=== PATIENT | female | born 1940 | race Caucasian/White ===

== ENCOUNTER → 2017-12-09 | Outpatient (CLI) | payer MEDICARE, BC ==
[~2017-12-09] MED LIST: ASPI-1471 PO; B CO1CAP PO; BLOO-1492 MC; BLOO-1503 MC; BLOO-1775 MC; BLOO-960 MC; BLOO1STR16 MC; GARL10005 PO; GARL1CAP15 PO; GLIM2TAB42 PO; GLIM2TAB43 PO; GLIM4TAB50 PO; GLUC100026 PO; GLUC500T13 PO; INSU100I30 SQ; LEV75 PO; LEVO150T7 PO; LEVO175T42 PO; LOSA100T67 PO; LOSA50TA67 PO; LUTE20TA PO; METH4TAB66 PO; METXR500 PO; MULT-820 PO; MULT-865 PO; NAPR-1043 PO; NEED-653 SQ; NYST15CR32 TP; PER PO; PNEU0.5D3 IM; SIM10 PO; SIMV-49 PO; WAR75 PO; WARF5TAB23 PO; [UNRECOGNIZED DRUG - CODE] PO
== END ==
LOC: LAB 09:08
PROVIDERS: ATTEND Nurse Practitioner Family
DX: E11.65 Type 2 diabetes mellitus with hyperglycemia (principal); E03.9 Hypothyroidism, unspecified; E78.00 Pure hypercholesterolemia, unspecified; I10 Essential (primary) hypertension
CPT/HCPCS: 36415; 82040; 82247; 82310; 82374; 82435; 82465; 82565; 82947; 83036; 83718; 84075; 84132; 84155; 84295; 84443; 84450; 84460; 84478; 84520

== ENCOUNTER 2018-05-17 07:22 | Observation (INO) | payer MEDICARE, BC ==
[~2018-05-17] VITALS: Ht 177.8 cm; Wt 135.2 kg
[~2018-05-17 07:22] MED LIST changes: -CYCL10TA29 PO; -FURO20TA19 PO; -OXYC5TAB38 PO
--- NOTE | 2018-05-17 07:29 | ER Report ---
History and Physical Time Seen By MD: 07:27 HPI/ROS CHIEF COMPLAINT: Left hip pain HISTORY OF PRESENT ILLNESS: Patient is a 78 her old female who presents to the emergency by ambulance with complaint of atraumatic left anterior hip pain. Patient states the pain is severe made worse with movement and she is having difficulty ambulating or even switching positions. Patient reports having a left hip replacement in [address] Everardo Patel. She states that she's had approximate 4 episodes in the past with similar type presentation with "muscle spasms" with difficulty ambulation. She reports that she is usually able to get over these episodes by taking extra strength Tylenol. She did follow up with Dr. Patel this past April secondary to these episodes. He stated that the hip was "okay" she was offered either a trial oral pain medications or physical therapy. She chose physical therapy and did 4 episodes of water therapy and improved her ambulation status and was feeling "good". She does have a plan to start a nutritional program to lose some weight this summer. Patient denies any rash over the area. She does report a subjective fever this past Thursday and felt flushed but did not actually take her temperature. Position of comfort is a sitting on the edge of a chair position with the hip flexed. She has minimal discomfort with either internal or external rotation. She has extreme pain with extension at the knee. She has pain with hip extension. REVIEW OF SYSTEMS: Constitutional: No fever, no chills. Eyes: No discharge. ENT: No sore throat. Cardiovascular: No chest pain, no palpitations. Respiratory: No cough, no shortness of breath. Gastrointestinal: No abdominal pain, no vomiting. Genitourinary: No hematuria. Musculoskeletal: Left hip pain Skin: No rashes. Neurological: No headache. Allergies: Coded Allergies: Penicillins (Verified Allergy, Intermediate, ITCHING, 05/17/18) Sulfa (Sulfonamide Antibiotics) (Unverified Allergy, Unknown, 05/17/18) Home Meds Active Scripts Diltiazem Hcl (DILTIAZEM 24HR ER) 120 Mg Cap.er.24h, 1 CAP PO QDAY for 90 Days, #90 CAP 1 Refill Prov:LEILANI MEJIA APRN CERTIFIED TEACHER ASSISTANT-C 04/27/18 Warfarin Sodium (WARFARIN SODIUM) 5 Mg Tablet, 2 TAB PO QDAY, #180 TAB 1 Refill Prov:JACKIELEILANIVICTORINA FRIEND CERTIFIED TEACHER ASSISTANT-C 03/29/18 Simvastatin (SIMVASTATIN) 20 Mg Tablet, 1 TAB PO HS, #90 TAB 1 Refill Prov:JACKIELEILANI BERNALP-C 03/29/18 Levothyroxine Sodium (LEVOTHYROXINE SODIUM) 175 Mcg Tablet, 1 TAB PO QDAY, #90 TAB 0 Refills Prov:LEILANI MEJIA APRN-C 03/22/18 Blood-Glucose Meter (BLOOD GLUCOSE METER) 1 Each Each, 1 EACH MC BID, #1 Prov:LEILANI MEJIA APRNP-C 10/20/17 Losartan Potassium (LOSARTAN POTASSIUM) 100 Mg Tablet, 1 TAB PO QDAY, #90 TAB 2 Refills Prov:LEILANI MEJIA APRNP-C 09/08/17 [place], Insulin Disposable (Bd Ultra-Fine Pen Needle) 1 Each Dis.needle, BOX SQ QDAY, #1 11 Refills Prov:LEILANI MEJIA APRNP-C 09/02/17 Insulin Glargine 100 Un/Ml Pen (LANTUS SOLOSTAR PEN) 100 Unit/1 Ml Insuln.pen, 28 UNIT SQ QDAY, #1 BOX 5 Refills Prov:LEILANI MEJIA APRN-C 08/03/17 Glimepiride (GLIMEPIRIDE) 4 Mg Tablet, 2 TAB PO QDAY, #180 TAB 3 Refills Prov:FRANKIE BELLE PHARMD 07/13/17 NYSTATIN 360371 UNT/ML Topical Cream (NYSTATIN 689991 UNT/ML Topical Cream) 15 Gm Cream..g., 1 MARIE TP TID Y for RASH, #1 TUBE 11 Refills Prov:LEILANI MEJIA APRNP-C 06/22/17 Blood Sugar Diagnostic (FREESTYLE LITE TEST STRIPS) 1 Each Strip, 1 EACH MC BID , #100 STRIP 5 Refills Prov:LEILANI MEJIA APRN CERTIFIED TEACHER ASSISTANT-C 06/22/17 Reported Medications Garlic (GARLIC) 1,000 Mg Capsule, 2 CAP PO DAILY, CAPSULE 06/22/17 Blood Sugar Diagnostic (ACCU-CHEK ERASTO PLUS) 1 Each Strip, 1 EACH MC QID, #100 STRIP 12 Refills 11/06/14 Glucosamine Sulfate 2KCL (GLUCOSAMINE) 1,000 Mg Tablet, 1 TAB PO DAILY 08/08/14 Lutein (LUTEIN) 20 Mg Tablet, 1 TAB PO DAILY 08/08/14 Multivitamin (DAILY MULTIPLE VITAMIN) 1 Each Tablet, 1 TAB PO DAILY 06/14/14 Past Medical/Surgical History Past medical history for hypercholesterolemia, hypothyroidism, insulin- dependent diabetes, left hip replacement in 2006, History of atrial fibrillation and hypertension. History of peripheral edema. Primary care provider is Leilani Domínguez. Smoking Status: Never Smoker Constitutional Vital Sign - Last 24 Hours 05/17/18 05/17/18 05/17/18 05/17/18 07:26 07:28 07:52 10:45 Temp 97.7 Pulse 96 106 Resp 20 B/P (MAP) 157/90 157/90 (112) Pulse Ox 94 93 O2 Delivery Room Air O2 Flow Rate 2.0 Physical Exam General Appearance: The patient is alert, has no immediate need for airway protection and no signs of toxicity. Respiratory: There are no retractions, lungs are clear to auscultation. Cardiovascular: Patient is slightly tachycardic with an irregularly irregular rhythm no audible murmurs noted. Gastrointestinal: Abdomen is soft and non tender, no masses, bowel sounds normal. Neurological: Awake and alert Skin: Warm and dry, no rashes. Musculoskeletal: Neck is supple non tender. Examination of the left hip reveals patient has inability to ambulate or support weight secondary to pain. She has normal internal and external rotation of the hip without significant pain. Extension at the knee causes pain in the anterior hip area patient has pain in a reclined position in the anterior hip. Medical Decision Making Data Points Result Diagram: 05/17/18 0845 05/17/18 0845 Laboratory Hematology Test 05/17/18 08:45 Red Blood Count 5.29 M/uL (4.17-5.56) Mean Corpuscular Volume 84.6 fL (80.0-96.0) Mean Corpuscular Hemoglobin 28.1 pg (26.0-33.0) Mean Corpuscular Hemoglobin Concent 33.2 g/dL (32.0-36.0) Red Cell Distribution Width 15.3 % (11.5-14.5) Mean Platelet Volume 8.6 fL (7.2-11.1) Neutrophils (%) (Auto) 76.1 % (39.4-72.5) Lymphocytes (%) (Auto) 13.1 % (17.6-49.6) Monocytes (%) (Auto) 8.4 % (4.1-12.4) Eosinophils (%) (Auto) 1.8 % (0.4-6.7) Basophils (%) (Auto) 0.6 % (0.3-1.4) Nucleated RBC Relative Count (auto) 0.0 /100WBC Neutrophils # (Auto) 9.7 K/uL (2.0-7.4) Lymphocytes # (Auto) 1.7 K/uL (1.3-3.6) Monocytes # (Auto) 1.1 K/uL (0.3-1.0) Eosinophils # (Auto) 0.2 K/uL (0.0-0.5) Basophils # (Auto) 0.1 K/uL (0.0-0.1) Nucleated RBC Absolute Count (auto) 0.00 K/uL Erythrocyte Sedimentation Rate 46 mm/HOUR (0-30) Prothrombin Time 28.2 seconds (12.0-14.4) Prothromb Time International Ratio 2.58 Sodium Level 134 mmol/L (137-145) Potassium Level 4.6 mmol/L (3.5-5.0) Chloride Level 98 mmol/L (98-107) Carbon Dioxide Level 25 mmol/L (22-31) Blood Urea Nitrogen 24 mg/dl (7-18) Creatinine 1.20 mg/dl (0.52-1.04) Glomerular Filtration Rate Calc 43.7 Random Glucose 185 mg/dl (75-110) Calcium Level 9.6 mg/dl (8.4-10.2) C-Reactive Protein 7.9 mg/dl (<1.0) Chemistry Test 05/17/18 08:45 White Blood Count 12.8 k/uL (4.5-11.0) Red Blood Count 5.29 M/uL (4.17-5.56) Hemoglobin 14.9 g/dL (12.0-16.0) Hematocrit 44.7 % (34.0-47.0) Mean Corpuscular Volume 84.6 fL (80.0-96.0) Mean Corpuscular Hemoglobin 28.1 pg (26.0-33.0) Mean Corpuscular Hemoglobin Concent 33.2 g/dL (32.0-36.0) Red Cell Distribution Width 15.3 % (11.5-14.5) Platelet Count 217 K/uL (150-450) Mean Platelet Volume 8.6 fL (7.2-11.1) Neutrophils (%) (Auto) 76.1 % (39.4-72.5) Lymphocytes (%) (Auto) 13.1 % (17.6-49.6) Monocytes (%) (Auto) 8.4 % (4.1-12.4) Eosinophils (%) (Auto) 1.8 % (0.4-6.7) Basophils (%) (Auto) 0.6 % (0.3-1.4) Nucleated RBC Relative Count (auto) 0.0 /100WBC Neutrophils # (Auto) 9.7 K/uL (2.0-7.4) Lymphocytes # (Auto) 1.7 K/uL (1.3-3.6) Monocytes # (Auto) 1.1 K/uL (0.3-1.0) Eosinophils # (Auto) 0.2 K/uL (0.0-0.5) Basophils # (Auto) 0.1 K/uL (0.0-0.1) Nucleated RBC Absolute Count (auto) 0.00 K/uL Erythrocyte Sedimentation Rate 46 mm/HOUR (0-30) Prothrombin Time 28.2 seconds (12.0-14.4) Prothromb Time International Ratio 2.58 Glomerular Filtration Rate Calc 43.7 Calcium Level 9.6 mg/dl (8.4-10.2) C-Reactive Protein 7.9 mg/dl (<1.0) Coagulation Test 05/17/18 08:45 Prothrombin Time 28.2 seconds Prothromb Time International Ratio 2.58 EKG/Imaging EKG Interpretation 05/17/2018 8:59:30 am EKG shows atrial fibrillation with rapid ventricular response with a ventricular rate of 103 bpm. There no prior EKGs to compare with. Imaging FACILITY: [facility] PATIENT NAME: Josie Hampton : 1940 MR: [id number] V: [id number] EXAM DATE: ORDERING PHYSICIAN: GRICELDA CHAPMAN TECHNOLOGIST: Location: [facility] - [place] Patient: Josie Hampton : 1940 Visit/Account:[id number] Date of Sevice: 05/17/2018 Exam type: HIP LEFT History: Fall, muscle spasms Comparison: April 13, 2007. Findings: There is a left hip arthroplasty appears in good anatomic alignment. There is a lucency surrounding the distal aspect of the femoral shaft component which could indicate loosening although clinical correlation needed. The inferior pubic ramus appears slightly irregular although this could be related to patient rotation. Mild to moderate degenerative change of the right hip joint incidentally noted IMPRESSION: 1. Left hip arthroplasty is noted which appears to be in good anatomic alignment. Lucency surrounding the distal aspect of the left femoral shaft component could indicate loosening although clinical correlation needed. The inferior pubic ramus on the left appears irregular although this could be related to patient rotation if pathology in this location is suspected additional views of the pelvis recommended Report Dictated By: Beulah Cooper MD at 05/17/2018 9:35 AM Report E-Signed By: Beulah Cooper MD at 05/17/2018 9:38 AM WSN:[email or web address] FACILITY: [facility] PATIENT NAME: Josie Hampton : 1940 MR: [id number] V: [id number] EXAM DATE: ORDERING PHYSICIAN: GRICELDA CHAPMAN TECHNOLOGIST: Location: [facility] - [place] Patient: Josie Hampton : 1940 Visit/Account:[id number] Date of Sevice: 05/17/2018 Exam type: PELVIS MIN 3 VIEWS History: abnl appearance left ramus on femur xr Comparison: Left hip image earlier in the day. Findings: Multiple views of the pelvis again demonstrate a left hip arthroplasty without evidence of acute fracture or dislocation.. There is no evidence of acute appearing fracture involving the pubic rami. IMPRESSION: 1. No evidence of acute appearing fracture involving the pubic rami Report Dictated By: Beulah Cooper MD at 05/17/2018 11:18 AM Report E-Signed By: Beulah Cooper MD at 05/17/2018 11:21 AM WSN:[email or web address] ED Course/Re-evaluation ED Course 05/17/2018 7:59:00 am After history and physical exam was performed differential diagnosis was formulated which includes but is not limited to osteoarthritis, occult fracture, acute synovitis doubt septic arthritis. Plan at this time will be to give 1 hydrocodone tablet we will x-ray the left hip. 05/17/2018 9:57:26 am x-ray of the left hip appears essentially normal however there is some irregularity to the left pubic rami. We will obtain a pelvis x- ray to better identify this area to delineate fracture between rotational component. Further patient with elevated white count at 12.8 also with elevated CRP and ESR. While this just may represent an inflammatory process must consider possible septic source as patient is an insulin requiring diabetic as well as having a prosthetic hip. 05/17/2018 11:29:38 am pelvic x-ray negative for fracture. Patient unable to ambulate secondary to pain. Patient lives by herself. She states that she has been just sitting in a chair in diapers and having people bring her food. Plan at this time I will be discussing admission with the hospitalist for orthopedic evaluation as well as physical therapy evaluation. 05/17/2018 11:39:29 am I spoke with Dr. Briceno regarding the case he is agreed to accept the patient at this time we'll consider possible orthopedic consultation plan will be physical therapy evaluation and pain control. Decision to Disposition Date: May 17, 2018 Decision to Disposition Time: 11:41 Depart Departure Latest Vital Signs Vital Signs Date Time Temp Pulse Resp B/P (MAP) Pulse Ox O2 Delivery O2 Flow Rate FiO2 05/17/18 10:45 2.0 05/17/18 07:52 106 93 05/17/18 07:28 157/90 (112) 05/17/18 07:26 97.7 20 Room Air Impression: Primary Impression: Hip pain, acute Condition: Condition Unchanged Disposition: Admitted from ER (to Neli Briceno) Referrals: LEILANI MEJIA APRN CERTIFIED TEACHER ASSISTANT-C (PCP) Problem Qualifiers Primary Impression: Hip pain, acute Laterality: left Qualified Codes: M25.552 - Pain in left hip GRICELDA CHAPMAN MD May 17, 2018 07:29
[2018-05-17] MEDS ORDERED: APAP/HYDROCODONE 325/5 TAB PO ONE (08:10)
--- NOTE | 2018-05-17 08:19 | EKG ---
FACILITY: [facility] PATIENT NAME: LUDA MORRIS : [id number] MR: [id number] V: [id number] EXAM DATE: ORDERING PHYSICIAN: GRICELDA CHAPMAN TECHNOLOGIST: AYLEEN Bernal Reason : AFIB Blood Pressure : / mmHG Vent. Rate : 103 BPM Atrial Rate : 101 BPM P-R Int : 000 ms QRS Dur : 076 ms QT Int : 326 ms P-R-T Axes : 000 053 090 degrees QTc Int : 427 ms Atrial fibrillation with rapid ventricular response Nonspecific ST abnormality , probably digitalis effect Abnormal ECG No previous ECGs available Confirmed by CLEVE BRAXTON ([id number]) on 05/17/2018 9:55:50 AM Referred By: ADELA Confirmed By:CLEVE BRAXTON
[2018-05-17 08:50] LABS: PLATELET COUNT, AUTOMATED 217 K/uL (150-450)
[2018-05-17 08:58] LABS: INR 2.58
--- NOTE | 2018-05-17 09:42 | RADIOLOGY IMAGING REPORT ---
FACILITY: [facility] PATIENT NAME: Josie Hampton : 1940 MR: [id number] V: [id number] EXAM DATE: ORDERING PHYSICIAN: GRICELDA CHAPMAN TECHNOLOGIST: Location: [facility] - [place] Patient: Josie Hampton : 1940 Visit/Account:[id number] Date of Sevice: 05/17/2018 Exam type: HIP LEFT History: Fall, muscle spasms Comparison: April 13, 2007. Findings: There is a left hip arthroplasty appears in good anatomic alignment. There is a lucency surrounding the distal aspect of the femoral shaft component which could indicate loosening although clinical cor relation needed. The inferior pubic ramus appears slightly irregular although this could be related to patient rotation. Mild to moderate degenerative change of the right hip joint incidentally noted IMPRESSION: 1. Left hip arthroplasty is noted which appears to be in good anatomic alignment. Lucency surroundi ng the distal aspect of the left femoral shaft component could indicate loosening although clinical c orrelation needed. The inferior pubic ramus on the left appears irregular although this could be related to patient rota tion if pathology in this location is suspected additional views of the pelvis recommended Report Dictated By: Beulah Cooper MD at 05/17/2018 9:35 AM Report E-Signed By: Beulah Cooper MD at 05/17/2018 9:38 AM WSN:[email or web address]
--- NOTE | 2018-05-17 11:24 | RADIOLOGY IMAGING REPORT ---
FACILITY: [facility] PATIENT NAME: Josie Hampton : 1940 MR: [id number] V: [id number] EXAM DATE: ORDERING PHYSICIAN: GRICELDA CHAPMAN TECHNOLOGIST: Location: [facility] - [place] Patient: Josie Hampton : 1940 Visit/Account:[id number] Date of Sevice: 05/17/2018 Exam type: PELVIS MIN 3 VIEWS History: abnl appearance left ramus on femur xr Comparison: Left hip image earlier in the day. Findings: Multiple views of the pelvis again demonstrate a left hip arthroplasty without evidence of acute frac ture or dislocation.. There is no evidence of acute appearing fracture involving the pubic rami. IMPRESSION: 1. No evidence of acute appearing fracture involving the pubic rami Report Dictated By: Beulah Cooper MD at 05/17/2018 11:18 AM Report E-Signed By: Beulah Cooper MD at 05/17/2018 11:21 AM WSN:[email or web address]
[2018-05-17 12:37] VITALS: BP 132/63
[2018-05-17] MEDS ORDERED: WARF5TAB23 PO (13:18)
[2018-05-17] MEDS ORDERED: INSULIN HUM LISPRO 100 UN/ML 3 ML VIAL SUBQ PRN (13:35)
[2018-05-17] MEDS ORDERED: ACETAMINOPHEN 325 MG TAB PO PRN (13:35)
[2018-05-17] MEDS ORDERED: [UNRECOGNIZED DRUG - OTHER] TP PRN (13:35)
--- NOTE | 2018-05-17 13:54 | History & Physical ---
History of Present Illness Chief Complaint left hip pain History of Present Illness Patient is a 78 her old female who presented to the emergency department with complaints of left anterior hip pain. Patient states the pain is severe made worse with movement and she is having difficulty ambulating or even switching positions. Patient reports having a left hip replacement in [address] Everardo Patel. She states that she's had approximate 4 episodes in the past with similar type presentation with "muscle spasms" with difficulty ambulation. She reports that she is usually able to get over these episodes by taking extra strength Tylenol. She did follow up with Dr. Patel this past April secondary to these episodes. He stated that the hip was "okay" she was offered either a trial oral pain medications or physical therapy. She chose physical therapy and did 4 episodes of water therapy and improved her ambulation status and was feeling "good". She does have a plan to start a nutritional program to lose some weight this summer. Patient denies any rash over the area. Position of comfort is a sitting on the edge of a chair position with the hip flexed. She has minimal discomfort with either internal or external rotation. She has extreme pain with extension at the knee. She has pain with hip extension. She was recommended for admission since she lives at home alone and has difficulty ambulating. History Problems: (1) Essential hypertension Status: Chronic (2) Hypercholesterolemia Status: Chronic (3) Hypothyroidism Status: Chronic (4) Obesity Status: Chronic (5) Type II diabetes mellitus, uncontrolled Status: Chronic (6) Obstructive sleep apnea Status: Chronic (7) long-term (current) use of anticoagulants Status: Chronic (8) Atrial fibrillation Status: Chronic Home Meds Active Scripts Diltiazem Hcl (DILTIAZEM 24HR ER) 120 Mg Cap.er.24h, 1 CAP PO QDAY for 90 Days, #90 CAP 1 Refill Prov:LEILANI MEJIA APRN PIG MACHINE CRANE OPERATOR-C 04/27/18 Warfarin Sodium (WARFARIN SODIUM) 5 Mg Tablet, 2 TAB PO QDAY, #180 TAB 1 Refill Prov:LEILANI MEJIA APRN PIG MACHINE CRANE OPERATOR-C 03/29/18 Simvastatin (SIMVASTATIN) 20 Mg Tablet, 1 TAB PO HS, #90 TAB 1 Refill Prov:LEILANI MEJIA APRN PIG MACHINE CRANE OPERATOR-C 03/29/18 Levothyroxine Sodium (LEVOTHYROXINE SODIUM) 175 Mcg Tablet, 1 TAB PO QDAY, #90 TAB 0 Refills Prov:LEILANI MEJIA APRN-C 03/22/18 Blood-Glucose Meter (BLOOD GLUCOSE METER) 1 Each Each, 1 EACH MC BID, #1 Prov:LEILANI MEJIA APRN-C 10/20/17 Losartan Potassium (LOSARTAN POTASSIUM) 100 Mg Tablet, 1 TAB PO QDAY, #90 TAB 2 Refills Prov:LEILANI MEJIA APRNP-C 09/08/17 [place], Insulin Disposable (Bd Ultra-Fine Pen Needle) 1 Each Dis.needle, BOX SQ QDAY, #1 11 Refills Prov:LEILANI MEJIA APRN-C 09/02/17 Insulin Glargine 100 Un/Ml Pen (LANTUS SOLOSTAR PEN) 100 Unit/1 Ml Insuln.pen, 28 UNIT SQ QDAY, #1 BOX 5 Refills Prov:LEILANI MEJIA APRN-C 08/03/17 Glimepiride (GLIMEPIRIDE) 4 Mg Tablet, 2 TAB PO QDAY, #180 TAB 3 Refills Prov:FRANKIE BELLE PHARMD 07/13/17 NYSTATIN 584951 UNT/ML Topical Cream (NYSTATIN 102760 UNT/ML Topical Cream) 15 Gm Cream..g., 1 MARIE TP TID Y for RASH, #1 TUBE 11 Refills Prov:LEILANI MEJIA APRN-C 06/22/17 Blood Sugar Diagnostic (FREESTYLE LITE TEST STRIPS) 1 Each Strip, 1 EACH MC BID , #100 STRIP 5 Refills Prov:LEILANI MEJIA APRNP-C 06/22/17 Reported Medications Warfarin Sodium (WARFARIN SODIUM) 5 Mg Tablet, 5 MG PO QDAY, TAB 05/17/18 Garlic (GARLIC) 1,000 Mg Capsule, 2 CAP PO DAILY, CAPSULE 06/22/17 Blood Sugar Diagnostic (ACCU-CHEK ERASTO PLUS) 1 Each Strip, 1 EACH MC QID, #100 STRIP 12 Refills 11/06/14 Glucosamine Sulfate 2KCL (GLUCOSAMINE) 1,000 Mg Tablet, 1 TAB PO DAILY 08/08/14 Lutein (LUTEIN) 20 Mg Tablet, 1 TAB PO DAILY 08/08/14 Multivitamin (DAILY MULTIPLE VITAMIN) 1 Each Tablet, 1 TAB PO DAILY 06/14/14 Allergies: Coded Allergies: Penicillins (Verified Allergy, Intermediate, ITCHING, 05/17/18) Sulfa (Sulfonamide Antibiotics) (Unverified Allergy, Unknown, 05/17/18) Patient History: FH: CHF (congestive heart failure) MOTHER, , Age:80 FH: Down syndrome BROTHER OR SISTER, , Age:40's - 50 FH: bowel obstruction BROTHER OR SISTER, , Age:40's - 50 FH: dementia Polycythemia FATHER, , Age:80 BROTHER OR SISTER Smoking Status: Never Smoker Caffeine Intake: Coffee, Tea Caffeine/Cups Per Day: 1/DAY Hx Alcohol Use: Yes (RARE) Hx Substance Use Disorder: No Social Drug Use: Never Review of Systems All Systems Reviewed/Normal: Yes, Except as Noted Musculoskeletal: Pain (left hip) Exam Vital Signs Vital Signs Date Time Temp Pulse Resp B/P (MAP) Pulse Ox O2 Delivery O2 Flow Rate FiO2 05/17/18 13:22 93 Room Air 05/17/18 12:37 98.8 93 16 132/63 (86) 90.0 05/17/18 10:45 2.0 General Appearance: Alert, Awake, No Acute Distress, Afebrile Neuro: No Gross deficits Cardiovascular: Regular Rate and Rhythm Respiratory: No Respiratory Distress, Clear to Auscultation GI: Abd Soft and Non-Tender Extremities: Soft and Non Tender, Warm, Perfused, Edema (2+ pitting edema bilaterally) Psych: Alert & Oriented X3, Appropriate Mood & Affect Medical Decision Making Data Points Result Diagram: 05/17/18 0845 05/17/18 0845 Item Value Date Time Erythrocyte Sedimentation Rate 46 mm/HOUR H 05/17/18 0845 C-Reactive Protein 7.9 mg/dl H 05/17/18 0845 EKG / Imaging Imaging PATIENT NAME: Josie Hampton : 1940 MR: [id number] V: [id number] EXAM DATE: [id number] ORDERING PHYSICIAN: GRICELDA CHAPMAN TECHNOLOGIST: Location: [facility] Patient: Josie Hampton : 1940 Visit/Account:[id number] Date of Sevice: 05/17/2018 Exam type: PELVIS MIN 3 VIEWS History: abnl appearance left ramus on femur xr Comparison: Left hip image earlier in the day. Findings: Multiple views of the pelvis again demonstrate a left hip arthroplasty without evidence of acute fracture or dislocation.. There is no evidence of acute appearing fracture involving the pubic rami. IMPRESSION: 1. No evidence of acute appearing fracture involving the pubic rami Report Dictated By: Beulah Cooper MD at 05/17/2018 11:18 AM Report E-Signed By: Beulah Cooper MD at 05/17/2018 11:21 AM PATIENT NAME: Josie Hampton : 1940 MR: [id number] V: [id number] EXAM DATE: ORDERING PHYSICIAN: GRICELDA CHAPMAN TECHNOLOGIST: Location: [facility] Patient: Josie Hampton : 1940 Visit/Account:[id number] Date of Sevice: 05/17/2018 Exam type: HIP LEFT History: Fall, muscle spasms Comparison: April 13, 2007. Findings: There is a left hip arthroplasty appears in good anatomic alignment. There is a lucency surrounding the distal aspect of the femoral shaft component which could indicate loosening although clinical correlation needed. The inferior pubic ramus appears slightly irregular although this could be related to patient rotation. Mild to moderate degenerative change of the right hip joint incidentally noted IMPRESSION: 1. Left hip arthroplasty is noted which appears to be in good anatomic alignment. Lucency surrounding the distal aspect of the left femoral shaft component could indicate loosening although clinical correlation needed. The inferior pubic ramus on the left appears irregular although this could be related to patient rotation if pathology in this location is suspected additional views of the pelvis recommended Report Dictated By: Beulah Cooper MD at 05/17/2018 9:35 AM Report E-Signed By: Beulah Cooper MD at 05/17/2018 9:38 AM Assessment and Plan Problems: (1) Hip pain, acute Status: Acute Assessment & Plan: She presented with left hip pain, which extends into the leg. She denies any trauma. Her x-rays were negative for any acute processes. She will be placed on oral pain medication and muscle relaxer. PT/OT have been ordered. (2) Essential hypertension Status: Chronic Assessment & Plan: She is on chronic treatment with Losartan. This has been started with hold parameters. (3) Hypercholesterolemia Status: Chronic Assessment & Plan: She is on chronic treatment with Simvastatin. (4) Hypothyroidism Status: Chronic Assessment & Plan: She is on chronic treatment with Levothyroxine. (5) Type II diabetes mellitus, uncontrolled Status: Chronic Assessment & Plan: She is on chronic treatment with Lantus. and Glimepiride. The Glimepiride has been placed on hold at this time. She will continue her Lantus and add SSI level 2, as well as AC/HS blood sugar monitoring. (6) Obstructive sleep apnea Status: Chronic Assessment & Plan: She wears oxygen at night. Does not require CPAP. (7) Atrial fibrillation Status: Chronic Assessment & Plan: She is on chronic treatment with Diltiazem and Warfarin. (8) Obesity Status: Chronic Venous Thromboembolism Antithrombotics Is Pt On Any Antithrombotics?: Yes Exam Sepsis Risk: No Definite Risk Problem Qualifiers (1) Hip pain, acute: Laterality: left Qualified Codes: M25.552 - Pain in left hip (2) Obesity: Obesity type: due to excess calories Obesity classification: adult class 3 ( BMI >= 40) Serious obesity comorbidity presence: with serious comorbidity Body mass index: BMI 40.0-44.9 Qualified Codes: E66.01 - Morbid (severe) obesity due to excess calories; Z68.41 - Body mass index (BMI) 40.0-44.9, adult [facility] May 17, 2018 13:53
[2018-05-17 15:43] VITALS: BP 151/79
[2018-05-17 16:13] VITALS: Ht 177.8 cm; Wt 135.2 kg
[2018-05-17] MEDS: CYCLOBENZAPRINE HCL 10 MG TAB PO PRN (16:32)
[2018-05-17 19:03] VITALS: BP 162/81
[2018-05-17] MEDS ORDERED: SIMVASTATIN 20 MG TAB PO SCH (21:00)
[2018-05-17] MEDS ORDERED: INSULIN GLARGINE 100 U/ML 3 ML PEN SQ SCH (21:00)
[2018-05-17] MEDS: DILTIAZEM CD 120 MG CAPCR PO SCH (21:14)
[2018-05-17] MEDS ORDERED: WARFARIN SOD 5 MG TAB ONE (21:15)
[2018-05-17] MEDS: LOSARTAN POTASSIUM 50 MG TAB PO SCH (21:15)
[2018-05-17 23:07] VITALS: BP 137/70
[2018-05-18] MEDS: CYCLOBENZAPRINE HCL 10 MG TAB PO PRN (00:39)
[2018-05-18 03:22] VITALS: BP 155/87
[2018-05-18] MEDS: APAP/HYDROCODONE 325/5 TAB PO PRN ×2 (04:02→13:41)
[2018-05-18 05:39] LABS: PLATELET COUNT, AUTOMATED 201 K/uL (150-450)
[2018-05-18] MEDS ORDERED: LEVOTHYROXINE SOD 0.175 MG TAB PO SCH (06:00)
[2018-05-18 07:46] VITALS: BP 132/59
[2018-05-18 08:06] LABS: INR 3.13
[2018-05-18] MEDS ORDERED: LUTEIN 20 MG PO SCH (09:00)
[2018-05-18] MEDS ORDERED: INSULIN GLARGINE 100 U/ML 3 ML PEN SQ SCH (09:00)
[2018-05-18] MEDS ORDERED: LUTEIN PO SCH (09:00)
[2018-05-18] MEDS: DILTIAZEM CD 120 MG CAPCR PO SCH (10:05)
[2018-05-18] MEDS: LOSARTAN POTASSIUM 50 MG TAB PO SCH (10:05)
[2018-05-18] MEDS ORDERED: WARFARIN SOD 5 MG TAB PO SCH (13:00)
[2018-05-18] MEDS ORDERED: OXYC5TAB38 PO ×2 (13:11→13:22)
[2018-05-18] MEDS ORDERED: CYCL10TA29 PO (13:11)
--- NOTE | 2018-05-18 13:19 | Hospitalist Depart ---
Discharge Summary Reason for Hosp/Final Diag: (1) Back pain Hospital Course & Plan: She presented with left hip pain, which extends into the leg. Reports this occasionally happens but usually controlled with Tylenol. She denies any trauma. Her x-rays were negative for any acute processes. She will be placed on oral pain medication and muscle relaxer. PT/OT have been ordered. Pain greatly improved, discussed that back pain is best treated with PT, recommend evaluation by PCP and if deemed appropriate referral to PT. If not improved in 6 months to 1 year, alarm symptoms develop or pain increases greatley may wish to consider MRI of L spine. (2) Hip pain, acute Status: Acute Hospital Course & Plan: 2/2 lower back pain. Reports L leg 1/4 inch shorter might benefit from orthotic. (3) Essential hypertension Status: Chronic Hospital Course & Plan: She is on chronic treatment with Losartan. (4) Hypercholesterolemia Status: Chronic Hospital Course & Plan: She is on chronic treatment with Simvastatin. (5) Hypothyroidism Status: Chronic Hospital Course & Plan: She is on chronic treatment with Levothyroxine. (6) Type II diabetes mellitus, uncontrolled Status: Chronic Hospital Course & Plan: She is on chronic treatment with Lantus. and Glimepiride. (7) Obstructive sleep apnea Status: Chronic Hospital Course & Plan: She wears oxygen at night. Does not require CPAP. (8) Atrial fibrillation Status: Chronic Hospital Course & Plan: She is on chronic treatment with Diltiazem and Warfarin. (9) Obesity Status: Chronic Departure Weight (Pounds): 298 Weight (Ounces): 6.0 Result Diagram: 05/18/1829 05/18/18528 Condition: Improved Discharge: Home Discharge Instructions Home Meds Active Scripts Oxycodone Hcl (OXYCODONE HCL) 5 Mg Tablet, 5 MG PO Q8H for PAIN for 7 Days, #10 TAB Prov:BULMARO MCFALRAND DO 05/18/18 Cyclobenzaprine Hcl (CYCLOBENZAPRINE HCL) 10 Mg Tablet, 10 MG PO Q8H Y for MUSCLE SPASMS for 14 Days, #42 TAB Prov:BULMARO MCFARLAND DO 05/18/18 Diltiazem Hcl (DILTIAZEM 24HR ER) 120 Mg Cap.er.24h, 1 CAP PO QDAY for 90 Days, #90 CAP 1 Refill Prov:LEILANI MEJIA APRNP-C 04/27/18 Warfarin Sodium (WARFARIN SODIUM) 5 Mg Tablet, 2 TAB PO QDAY, #180 TAB 1 Refill Prov:LEILANI MEJIA APRN-C 03/29/18 Simvastatin (SIMVASTATIN) 20 Mg Tablet, 1 TAB PO HS, #90 TAB 1 Refill Prov:LEILANI MEJIA APRN-C 03/29/18 Levothyroxine Sodium (LEVOTHYROXINE SODIUM) 175 Mcg Tablet, 1 TAB PO QDAY, #90 TAB 0 Refills Prov:LEILANI MEJIA APRN-C 03/22/18 Blood-Glucose Meter (BLOOD GLUCOSE METER) 1 Each Each, 1 EACH MC BID, #1 Prov:LEILANI MEJIA APRN-C 10/20/17 Losartan Potassium (LOSARTAN POTASSIUM) 100 Mg Tablet, 1 TAB PO QDAY, #90 TAB 2 Refills Prov:LEILANI MEJIA APRN-C 09/08/17 [place], Insulin Disposable (Bd Ultra-Fine Pen Needle) 1 Each Dis.needle, BOX SQ QDAY, #1 11 Refills Prov:LEILANI MEJIA APRN-C 09/02/17 Insulin Glargine 100 Un/Ml Pen (LANTUS SOLOSTAR PEN) 100 Unit/1 Ml Insuln.pen, 28 UNIT SQ QDAY, #1 BOX 5 Refills Prov:LEILANI MEJIA APRN-C 08/03/17 Glimepiride (GLIMEPIRIDE) 4 Mg Tablet, 2 TAB PO QDAY, #180 TAB 3 Refills Prov:FRANKIE BELLE PHARMD 07/13/17 NYSTATIN 543083 UNT/ML Topical Cream (NYSTATIN 557961 UNT/ML Topical Cream) 15 Gm Cream..g., 1 MARIE TP TID Y for RASH, #1 TUBE 11 Refills Prov:LEILANI MEJIA APRN-C 06/22/17 Blood Sugar Diagnostic (FREESTYLE LITE TEST STRIPS) 1 Each Strip, 1 EACH MC BID , #100 STRIP 5 Refills Prov:LEILANI MEJIA APRN-C 06/22/17 Reported Medications Warfarin Sodium (WARFARIN SODIUM) 5 Mg Tablet, 5 MG PO QDAY, TAB 05/17/18 Garlic (GARLIC) 1,000 Mg Capsule, 2 CAP PO DAILY, CAPSULE 06/22/17 Blood Sugar Diagnostic (ACCU-CHEK ERASTO PLUS) 1 Each Strip, 1 EACH MC QID, #100 STRIP 12 Refills 11/06/14 Glucosamine Sulfate 2KCL (GLUCOSAMINE) 1,000 Mg Tablet, 1 TAB PO DAILY 08/08/14 Lutein (LUTEIN) 20 Mg Tablet, 1 TAB PO DAILY 08/08/14 Multivitamin (DAILY MULTIPLE VITAMIN) 1 Each Tablet, 1 TAB PO DAILY 06/14/14 Diet: Regular Activity: As Tolerated Copies to: LEILANI MEJIA APRN CABIN WORKER-C Venous Thromboembolism Antithrombotics Is Pt On Any Antithrombotics?: Yes Problem Qualifiers (1) Hip pain, acute: Laterality: left Qualified Codes: M25.552 - Pain in left hip (2) Obesity: Obesity type: due to excess calories Obesity classification: adult class 3 ( BMI >= 40) Serious obesity comorbidity presence: with serious comorbidity Body mass index: BMI 40.0-44.9 Qualified Codes: E66.01 - Morbid (severe) obesity due to excess calories; Z68.41 - Body mass index (BMI) 40.0-44.9, adult BULMARO MCFARLAND DO May 18, 2018 13:19
[2018-05-19] MEDS ORDERED: WARFARIN SOD 5 MG TAB PO SCH (13:00)
== END 2018-05-18 13:12 | disposition home or self-care (01) ==
LOC: ER 07:32 → MED 12:00 → INTOOBSV 12:00
PROVIDERS: ADMIT Family Medicine; ATTEND Family Medicine
DX: M25.552 Pain in left hip (principal); E78.00 Pure hypercholesterolemia, unspecified; E03.9 Hypothyroidism, unspecified; E11.9 Type 2 diabetes mellitus without complications; I48.2 Chronic atrial fibrillation; I10 Essential (primary) hypertension; G47.33 Obstructive sleep apnea (adult) (pediatric); E66.9 Obesity, unspecified; Z79.4 Long term (current) use of insulin; Z96.642 Presence of left artificial hip joint; Z79.01 Long term (current) use of anticoagulants; Z68.41 Body mass index [BMI] 40.0-44.9, adult
CPT/HCPCS: 36415; 36416; 72190; 73502; 82948; 83880; 85025; 85610; 85651; 86140; 93005; 96372; 97116; 97161; 97165; 97530; 99284; A9270; G0378; 82310; 82374; 82435; 82565; 82947; 84132; 84295; 84520; J1815

== ENCOUNTER → 2018-05-17 | Outpatient (CLI) | payer MEDICARE, BC ==
[~2018-05-17] MED LIST changes: +CYCL10TA29 PO; +DILT120C28 PO; +FURO20TA19 PO; +OXYC5TAB38 PO
[2018-05-17 16:13] VITALS: BMI 42.8
== END ==
LOC: AMB 07:04
PROVIDERS: ATTEND Nurse Practitioner
DX: M79.662 Pain in left lower leg (principal); R53.1 Weakness; R09.02 Hypoxemia
CPT/HCPCS: A0425; A0427

== ENCOUNTER 2018-05-21 10:05 | Emergency (ER) | payer MEDICARE, BC ==
[2018-05-17 16:13] VITALS: Wt 135.3 kg
[~2018-05-21 10:05] MED LIST changes: +CYCL10TA29 PO; +OXYC5TAB38 PO
--- NOTE | 2018-05-21 10:10 | ER Report ---
History and Physical Time Seen By : 10:09 HPI/ROS CHIEF COMPLAINT: Leg swelling HISTORY OF PRESENT ILLNESS: Patient is a 78-year-old female who returns to the emergency department at the request of her friend for evaluation of leg swelling. Patient was initially admitted to the emergency department on May 17 for inability to ambulate and left hip pain. She was seen and evaluated and improved and was discharged on May 18. She returns to emergency department at the request of her friend because of leg swelling that seems to be worsening. She denies any fevers or chills he does state that the left leg at times becomes painful and white. She has been ambulatory more home. She denies any new falls. She does ambulate with a walker. REVIEW OF SYSTEMS: Respiratory: No cough, no dyspnea. Cardiovascular: No chest pain, no palpitations. Gastrointestinal: No vomiting, no abdominal pain. Musculoskeletal: Chronic back pain, left leg pain Allergies: Coded Allergies: Penicillins (Verified Allergy, Intermediate, ITCHING, 05/17/18) Sulfa (Sulfonamide Antibiotics) (Unverified Allergy, Unknown, 05/17/18) Home Meds Active Scripts Oxycodone Hcl (OXYCODONE HCL) 5 Mg Tablet, 5 MG PO Q8H for pain for 7 Days, #10 TAB Prov:VIVIEN WONGBULMARO DO 05/18/18 Cyclobenzaprine Hcl (CYCLOBENZAPRINE HCL) 10 Mg Tablet, 10 MG PO Q8H Y for MUSCLE SPASMS for 14 Days, #42 TAB Prov:VIVIEN WONGBULMARO DO 05/18/18 Diltiazem Hcl (DILTIAZEM 24HR ER) 120 Mg Cap.er.24h, 1 CAP PO QDAY for 90 Days, #90 CAP 1 Refill Prov:LEILANI MEJIA APRN-C 04/27/18 Warfarin Sodium (WARFARIN SODIUM) 5 Mg Tablet, 2 TAB PO QDAY, #180 TAB 1 Refill Prov:LEILANI MEJIA APRN-C 03/29/18 Simvastatin (SIMVASTATIN) 20 Mg Tablet, 1 TAB PO HS, #90 TAB 1 Refill Prov:LEILANI MEJIA APRN-C 03/29/18 Levothyroxine Sodium (LEVOTHYROXINE SODIUM) 175 Mcg Tablet, 1 TAB PO QDAY, #90 TAB 0 Refills Prov:LEILANI MEJIA APRNP-C 03/22/18 Blood-Glucose Meter (BLOOD GLUCOSE METER) 1 Each Each, 1 EACH MC BID, #1 Prov:LEILANI MEJIA PHUC BERNALP-C 10/20/17 Losartan Potassium (LOSARTAN POTASSIUM) 100 Mg Tablet, 1 TAB PO QDAY, #90 TAB 2 Refills Prov:CLEVELANDDAVIDUTSHARLEILANIVICTORINA FRIEND PRESTO LOG OPERATOR-C 09/08/17 [place], Insulin Disposable (Bd Ultra-Fine Pen Needle) 1 Each Dis.needle, BOX SQ QDAY, #1 11 Refills Prov:CLEVELAND-SERGEILEILANI PHUC PRESTO LOG OPERATOR- 09/02/17 Insulin Glargine 100 Un/Ml Pen (LANTUS SOLOSTAR PEN) 100 Unit/1 Ml Insuln.pen, 28 UNIT SQ QDAY, #1 BOX 5 Refills Prov:KRISTINTUSHAR MAIVICTORINA BERNALP- 08/03/17 Glimepiride (GLIMEPIRIDE) 4 Mg Tablet, 2 TAB PO QDAY, #180 TAB 3 Refills Prov:FRANKIE BELLE PHARMD 07/13/17 NYSTATIN [id number] UNT/ML Topical Cream (NYSTATIN 509349 UNT/ML Topical Cream) 15 Gm Cream..g., 1 MARIE TP TID Y for RASH, #1 TUBE 11 Refills Prov:JACKIELEILANI BERNALP- 06/22/17 Blood Sugar Diagnostic (FREESTYLE LITE TEST STRIPS) 1 Each Strip, 1 EACH MC BID , #100 STRIP 5 Refills Prov:JACKIELEILANI BERNALP- 06/22/17 Reported Medications Warfarin Sodium (WARFARIN SODIUM) 5 Mg Tablet, 5 MG PO QDAY, TAB 05/17/18 Garlic (GARLIC) 1,000 Mg Capsule, 2 CAP PO DAILY, CAPSULE 06/22/17 Blood Sugar Diagnostic (ACCU-CHEK ERASTO PLUS) 1 Each Strip, 1 EACH MC QID, #100 STRIP 12 Refills 11/06/14 Glucosamine Sulfate 2KCL (GLUCOSAMINE) 1,000 Mg Tablet, 1 TAB PO DAILY 08/08/14 Lutein (LUTEIN) 20 Mg Tablet, 1 TAB PO DAILY 08/08/14 Multivitamin (DAILY MULTIPLE VITAMIN) 1 Each Tablet, 1 TAB PO DAILY 9/3/14 Past Medical/Surgical History Past medical history for hypertension, hypercholesterolemia, hypothyroidism, type II diabetes uncontrolled, obstructive sleep apnea, atrial fibrillation on Coumadin recent admission on May 17 through May 18 for acute hip pain. Smoking Status: Never Smoker Hx Substance Use Disorder: No Hx Alcohol Use: Yes (RARE) Constitutional Vital Sign - Last 24 Hours 05/21/18 05/21/18 05/21/18 05/21/18 10:05 10:13 10:15 10:20 Temp 98.1 Pulse ??? 109 98 Resp 20 B/P (MAP) 127/51 (76) 127/51 Pulse Ox 87 93 O2 Delivery Room Air 05/21/18 05/21/18 05/21/18 05/21/18 10:30 10:35 11:00 11:05 Pulse 101 ??? B/P (MAP) 136/84 (101) 138/86 (103) Pulse Ox 92 92 05/21/18 05/21/18 05/21/18 05/21/18 11:10 11:20 11:30 11:50 Pulse 86 86 B/P (MAP) 136/63 (87) 132/78 (96) Pulse Ox 94 95 05/21/18 12:00 B/P (MAP) 130/77 (94) Physical Exam General Appearance: The patient is alert, has no immediate need for airway protection and no current signs of toxicity. Respiratory: Chest is non tender, lungs are clear to auscultation. Cardiac: regular rate and rhythm Gastrointestinal: Abdomen is soft and non tender, no masses, bowel sounds normal. Musculoskeletal: 4+ pitting edema bilateral lower extremities. Decreased range of motion at the left hip. Skin: No rashes or lesions. Medical Decision Making EKG/Imaging Imaging FACILITY: [facility] PATIENT NAME: Josie Hampton : 1940 MR: [id number] V: [id number] EXAM DATE: ORDERING PHYSICIAN: GRICELDA CHAPMAN TECHNOLOGIST: Location: [facility] [place] Patient: Josie Hampton : 1940 Visit/Account:[id number] Date of Sevice: 05/21/2018 ARTERIAL LOWER EXT LEFT HISTORY: pain/ white leg COMPARISON: None. FINDINGS: Normal waveform morphology is noted in the left common femoral artery. There is a monophasic, blunted waveforms distal superficial femoral artery indicative of proximal disease. Multiphasic waveform is seen in the popliteal proximally. Waveform returns to monophasic in its distal portion. Abnormal monophasic waveform is seen throughout the posterior tibial and peroneal arteries. There is a multiphasic waveform in the anterior tibial artery which is blunted at the level of the dorsalis pedis. IMPRESSION: 1. Ultrasound evidence of hemodynamically significant disease in the mid to distal portion superficial femoral artery. There is likely also tandem hemodynamically significant disease in the retrogeniculate popliteal artery. 2. Ultrasound demonstrates patency of the tibial runoff. The blunted, monophasic waveform morphology of the dorsalis pedis and distal posterior tibial and peroneal arteries is indicative of tibioperoneal disease. Sonographic findings could be correlated with a resting NEL. Report Dictated By: James Bowles MD at 05/21/2018 12:46 PM Report E-Signed By: James Bowles MD at 05/21/2018 12:51 PM WSN:[facility] FACILITY: [facility] [place] PATIENT NAME: Josie Hampton : 1940 MR: [id number] V: [id number] EXAM DATE: ORDERING PHYSICIAN: GRICELDA CHAPMAN TECHNOLOGIST: Location: [facility] [place] Patient: Josie Hampton : 1940 Visit/Account:[id number] Date of Sevice: 05/21/2018 VENOUS DOPP LOW LEFT EXTREMITY HISTORY: swelling/pain COMPARISON: None. FINDINGS: Duplex sonographic interrogation, segmental compressibility and evaluation of respiratory phasicity reveals no evidence of left lower extremity clot. Superficial edema is noted without fluid collection or mass. IMPRESSION: No evidence of left lower extremity DVT Report Dictated By: James Bowles MD at 05/21/2018 12:45 PM Report E-Signed By: James Bowles MD at 05/21/2018 12:46 PM WSN:[facility] ED Course/Re-evaluation ED Course 05/21/2018 10:39:21 am initial plan was placed IV check blood work get ultrasounds of the left lower extremity along with arterial Dopplers. Patient refusing IV at this time. We'll give oral Lasix will get venous Doppler and arterial Doppler if the need arises for IV patient agrees to have one placed. 05/21/2018 1:25:33 pm I had a discussion with the patient's primary care provider Shaw mai. She is aware of the patient's recent admission now as well as her emergency department visit today. She agrees with starting the patient on Lasix 20 mg twice a day she will follow-up the patient in 1 week. She will have her nurse call the patient to schedule an appointment. Patient and no questions or concerns at time of disposition. Decision to Disposition Date: May 21, 2018 Decision to Disposition Time: 13:25 Depart Departure Latest Vital Signs Vital Signs Date Time Temp Pulse Resp B/P (MAP) Pulse Ox O2 Delivery O2 Flow Rate FiO2 05/21/18 12:00 130/77 (94) 05/21/18 11:50 86 95 05/21/18 10:15 98.1 20 Room Air Impression: Primary Impression: Peripheral edema Additional Impression: Claudication Condition: Improved Disposition: HOME OR SELF-CARE Referrals: LEILANI MEJIA APRN PRESTO LOG OPERATOR-C (PCP) 1 Week New Scripts Furosemide (LASIX) 20 Mg Tablet 1 TAB PO BID for 7 Days, #14 TAB 0 Refills Begin taking on 05/22/18 Prov: GRICELDA CHAPMAN MD 05/21/18 Additional Instructions: Scheduled follow-up appointment with the heart and vascular Center at [facility] contact information listed below. [facility] [address] [place] [address] Problem Qualifiers GRICELDA CHAPMAN MD May 21, 2018 10:10
[2018-05-21] MEDS ORDERED: FUROSEMIDE 40 MG/4 ML VIAL IVP SCH (10:20)
[2018-05-21] MEDS ORDERED: FUROSEMIDE 40 MG TAB PO ONE (10:35)
[2018-05-21 12:00] VITALS: BP 130/77
--- NOTE | 2018-05-21 12:49 | RADIOLOGY IMAGING REPORT ---
FACILITY: [facility] PATIENT NAME: Josie Hampton : 1940 MR: [id number] V: [id number] EXAM DATE: ORDERING PHYSICIAN: GRICELDA CHAPMAN TECHNOLOGIST: Location: [facility] Patient: Josie Hampton : 1940 Visit/Account:[id number] Date of Sevice: 05/21/2018 VENOUS DOPP LOW LEFT EXTREMITY HISTORY: swelling/pain COMPARISON: None. FINDINGS: Duplex sonographic interrogation, segmental compressibility and evaluation of respiratory phasicity r eveals no evidence of left lower extremity clot. Superficial edema is noted without fluid collection or mass. IMPRESSION: No evidence of left lower extremity DVT Report Dictated By: James Bowles MD at 05/21/2018 12:45 PM Report E-Signed By: James Bowles MD at 05/21/2018 12:46 PM WSN:[email or web address]
--- NOTE | 2018-05-21 12:54 | RADIOLOGY IMAGING REPORT ---
FACILITY: [facility] PATIENT NAME: Josie Hampton : 1940 MR: [id number] V: [id number] EXAM DATE: ORDERING PHYSICIAN: GRICELDA CHAPMAN TECHNOLOGIST: Location: [facility] [place] Patient: Josie Hampton : 1940 Visit/Account:[id number] Date of Sevice: 05/21/2018 ARTERIAL LOWER EXT LEFT HISTORY: pain/ white leg COMPARISON: None. FINDINGS: Normal waveform morphology is noted in the left common femoral artery. There is a monophasic, blunte d waveforms distal superficial femoral artery indicative of proximal disease. Multiphasic waveform i s seen in the popliteal proximally. Waveform returns to monophasic in its distal portion. Abnormal monophasic waveform is seen throughout the posterior tibial and peroneal arteries. There is a multip hasic waveform in the anterior tibial artery which is blunted at the level of the dorsalis pedis. IMPRESSION: 1. Ultrasound evidence of hemodynamically significant disease in the mid to distal portion superfici al femoral artery. There is likely also tandem hemodynamically significant disease in the retrogenic ulate popliteal artery. 2. Ultrasound demonstrates patency of the tibial runoff. The blunted, monophasic waveform morpholog y of the dorsalis pedis and distal posterior tibial and peroneal arteries is indicative of tibioperon eal disease. Sonographic findings could be correlated with a resting NEL. Report Dictated By: James Bowles MD at 05/21/2018 12:46 PM Report E-Signed By: James Bowles MD at 05/21/2018 12:51 PM WSN:[email or web address]
[2018-05-21] MEDS ORDERED: FURO20TA19 PO (13:28)
== END 2018-05-21 13:44 | disposition home or self-care (01) ==
LOC: ER 10:11
DX: R60.9 Edema, unspecified (principal); I73.9 Peripheral vascular disease, unspecified
CPT/HCPCS: 93926; 93971; 99284; A9270

== ENCOUNTER → 2018-06-10 | Outpatient (CLI) | payer MEDICARE, BC ==
[2018-05-17 16:13] VITALS: BMI 42.8
[~2018-06-10] MED LIST changes: +FURO20TA19 PO
--- NOTE | 2018-06-10 14:50 | RADIOLOGY IMAGING REPORT ---
FACILITY: [facility] PATIENT NAME: Josie Hampton : 1940 MR: [id number] V: [id number] EXAM DATE: ORDERING PHYSICIAN: LEILANI MEJIA TECHNOLOGIST: Location: [facility] Patient: Josie Hampton : 1940 Visit/Account:[id number] Date of Sevice: 06/10/2018 EXAMINATION: L SPINE W/O CONTRAST INDICATION: Back pain COMPARISON: None available TECHNIQUE: Multiplane MR imaging was performed through the lumbar spine without contrast. 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 Marrow signal: L3 and L5 vertebral body benign hemangiomas. Mild degenerative edema surrounds the T12 -L1 and L1-2 disc spaces. Mild nonspecific edema in the left T12 transverse process and pedicle likel y related to costovertebral junction degeneration. Extraspinal structures including psoas muscles/paraspinal soft tissues: Normal Other: Small T11-12 disc protrusion results in mild canal narrowing. T12-L1: Severe disc space degeneration. Small disc protrusion results in no significant canal narrowi ng. L1-2: Moderate disc space degeneration, small disc protrusion, slight bilateral lateral recess narrow ing, mild to moderate right foraminal narrowing, no significant left foraminal narrowing. L2-3: Severe disc space degeneration, small disc protrusion, slight bilateral lateral recess narrowin g, mild bilateral foraminal narrowing. L3-4: Severe disc space degeneration, small disc protrusion, slight bilateral lateral recess narrowin g, moderate left and mild to moderate right foraminal narrowing. L4-5: Small disc protrusion, ligamentum flavum thickening, mild bilateral lateral recess narrowing, m ild to moderate right and mild left foraminal narrowing. L5-S1: Minimal disc protrusion, moderate facet arthropathy, no canal narrowing, moderate right forami nal narrowing. IMPRESSION: 1. Multilevel disc space degeneration, see level by level comments above. 2. Multilevel slight to mild lateral recess narrowing, see level by level comments above. 3. No significant lumbar canal narrowing. 4. Mild T11-T12 canal narrowing secondary to small disc protrusion. 5. Multilevel foraminal narrowing, see level by level comments above. Report Dictated By: Paul Nunez MD at 06/10/2018 2:38 PM Report E-Signed By: Paul Nunez MD at 06/10/2018 2:46 PM WSN:[email or web address]
== END ==
LOC: MRI 06-07 02:59
PROVIDERS: ATTEND Nurse Practitioner Family
DX: M51.34 Other intervertebral disc degeneration, thoracic region (principal); M51.36 Other intervertebral disc degeneration, lumbar region; M48.061 Spinal stenosis, lumbar region without neurogenic claudication
CPT/HCPCS: 72148

== ENCOUNTER → 2018-08-25 | Outpatient (CLI) | payer MEDICARE, BC ==
[2018-05-17 16:13] VITALS: BMI 42.8
[~2018-08-25] MED LIST changes: -LOSA100T67 PO; +LOSA100T69 PO
[2018-08-25 09:48] LABS: INR 2.26
== END ==
LOC: LAB 08:15
PROVIDERS: ATTEND Pharmacist Pharmacotherapy
DX: I48.91 Unspecified atrial fibrillation (principal)
CPT/HCPCS: 36415; 85610